=== PATIENT | female | born 1990 | race Two or more races ===

== ENCOUNTER 2017-04-30 01:53 | Inpatient (IN) | payer OTHER ==
[2017-04-30] VITALS (20 sets, daily range): BP systolic 98–132; BP diastolic 51–76
[~2017-04-30] VITALS: Ht 154.9 cm; Wt 95.3 kg
[~2017-04-30 01:53] MED LIST: DOCUSATE SODIU100 MG PO; ENDOCET 5-3251 EACH PO; IBUPROFEN800 MG PO; VITAFOL-OB+DHA1 EACH PO
[2017-04-30 03:04] LABS: EOSINOPHIL (%) 0.7 % (0-5); EOSINOPHIL COUNT 0.1 K/uL (0-0.3); HEMATOCRIT 33.9 % (36.0-46.0); IMMATURE GRANULOCYTE (%) 0.6 % (0.0-0.7); IMMATURE GRANULOCYTE COUNT 0.1 K/uL; INSTRUMENT ABS NEUTROPHIL CT 7.5 K/uL; LYMPHOCYTE COUNT 3.9 K/uL (1.0-2.8); MCH 27.7 PG (29.0-34.0); MCHC 32.2 G/DL (30.0-36.0); MEAN PLAT.VOLUME 10.9 uM^3 (9.5-12.4); MONOCYTE (%) 7.2 % (3-12); MONOCYTE COUNT 0.9 K/uL (0-0.8); NEUTROPHIL COUNT 7.5 K/uL (1.8-6.4); PLATELET COUNT 235 K/uL (156-360); RBC DIS.WIDTH-CV 13.1 % (11.8-14.6); RED BLOOD COUNT 3.94 M/uL (3.80-5.20); WHITE BLOOD COUNT 12.4 K/uL (4.1-10.2)
[2017-04-30] MEDS ORDERED: IBUPROFEN800 MG PO (08:05)
[2017-05-01 07:06] VITALS: BP 122/65
[2017-05-01] MEDS ORDERED: FERROUS SULFAT325 MG PO (10:13)
[2017-05-01] MEDS ORDERED: IBUPROFEN800 MG PO (14:18)
== END 2017-05-01 15:00 | disposition home or self-care (01) | DRG 775 ==
LOC: LDRP-OP 01:53 → 2WEST 01:54 → LDRP-OP 05-21 11:19
PROVIDERS: Advanced Practice Midwife
PROC: 10E0XZZ Delivery of Products of Conception, External Approach (ICD-10-PCS; principal; 2017-04-30)
PROC: 10907ZC Drainage of Amniotic Fluid, Therapeutic from Products of Conception, Via Natural or Artificial Opening (ICD-10-PCS; 2017-04-30)
PROC: 3E0S3BZ Introduction of Anesthetic Agent into Epidural Space, Percutaneous Approach (ICD-10-PCS; 2017-04-30)
DX: O48.0 Post-term pregnancy (principal); F33.9 Major depressive disorder, recurrent, unspecified; O77.0 Labor and delivery complicated by meconium in amniotic fluid; Z3A.41 41 weeks gestation of pregnancy; Z37.0 Single live birth; O40.3XX1 Polyhydramnios, third trimester, fetus 1; O99.214 Obesity complicating childbirth; E66.9 Obesity, unspecified; O99.62 Diseases of the digestive system complicating childbirth; O99.344 Other mental disorders complicating childbirth; K58.9 Irritable bowel syndrome, unspecified; Z68.39 Body mass index [BMI] 39.0-39.9, adult
CPT/HCPCS: 85025; C1755; J3010; J7120